=== PATIENT | female | born 1960 | race Caucasian/White ===

== ENCOUNTER 2019-05-20 09:53 | Emergency (ER) | payer BC ==
--- OUTSIDE RECORDS SUMMARY | 2019-05-20 11:30 | XMS REPORT | Continuity of Care Document ---
:1960 External Reference #:[id number] Author Name CLARISSA Wade Address [address] [place] [address] Care Team Providers Name Role Phone Florentin Lind MD - Emergency Medicine Care Team Information Bumper Straightener [facility] Care Team Information Bumper Straightener [phone] Problems Description No Active Problems Social History Type Date Description Comments Sex Unknown Tobacco Use Start: Unknown Patient has never smoked Allergies, Adverse Reactions, Alerts Active Allergies Reaction Severity Comments Date Midazolam Free Text 04/07/2018 Medications Active Medications SIG Qnty Indications Ordering Provider Date Amoxicillin/Clavulanat 1 by mouth 20tabs J01.90 Patrick 05/17/2019 e Potassium twice a day x MD Justice 875-125mg 10days Tablets History Medications No Active Medications Unknown 05/17/2019 - 05/17/2019 No Active Medications Unknown 12/25/2018 - 12/25/2018 Prednisone 2 tabs by 6tabs T63.461A Patrick 12/25/2018 - 10mg Tablets mouth every MD Justice 05/17/2019 day Immunizations CPT Code Status Date Vaccine Lot # [id number] Given 01/30/2015 Tdap - Tetanus/Diptheria/Acellular Pertussis [id number] Given 01/09/2014 Influenza Virus 3Yrs & Over [id number] Given 02/23/2008 Influenza Virus 3Yrs & Over Vital Signs Date Vital Result Comment 05/17/2019 2:51pm Heart Rate 81 /min BP Systolic Sitting 110 mmHg BP Diastolic Sitting 78 mmHg Respiratory Rate 16 /min Body Temperature 99.0 F O2 % BldC Oximetry 96 % room air 12/25/2018 2:53pm Heart Rate 68 /min BP Systolic Sitting 118 mmHg BP Diastolic Sitting 70 mmHg Body Temperature 98.9 F O2 % BldC Oximetry 95 % Results Description No Information Available Procedures Description No Information Available Medical Devices Description No Information Available Encounters Type Date Location Provider Dx Diagnosis Office Visit 12/25/2018 [facility] Nicolette T63.461A Toxic effect of 3:02p [place] of [place], Drugs accidental, init Assessments Date Code Description Provider 05/17/2019 J01.90 Acute sinusitis, unspecified CLARISSA Wade 12/25/2018 T63.461A Toxic effect of venom of wasps, accidental CLARISSA Johnson (unintentional), initial encounter Plan of Treatment 05/17/2019 - CLARISSA WadeJ01.90 Acute sinusitis, unspecifiedNew Medication: Amoxicillin/Clavulanate Potassium 875-125 mg - 1 by mouth twice a day x 10daysComments:FOLLOW UP WITH PRIMARY CARE IN 10 DAYS OR SOONER IF WORSE. Functional Status Description No Information Available Mental Status Description No Information Available Referrals Description No Information Available
[2019-05-20 11:40] VITALS: BP 127/64
--- NOTE | 2019-05-20 11:59 | UC ---
Respiratory Complaint HPI - HPI Summary HPI Summary: 59 yo with a several week hx of nasal congestion, sinus pressure and cough. She began a course of augmentin but developed a severe headache shortly after taking it and stopped use. She continues to feel unwell with prolonged bouts of coughing and fatigue. - History of Current Complaint Chief Complaint: UCGeneralIllness Stated Complaint: SINUS/CHEST CONGESTION Time Seen by Provider: 05/20/19 11:49 Hx Obtained From: Patient Hx Last Menstrual Period: D&C 4 years ago Onset/Duration: Gradual Onset, Lasting Weeks Severity Initially: Mild Severity Currently: Moderate Pain Intensity: 4 Character: Cough: Productive Aggravating Factors: Recumbent Position Alleviating Factors: OTC Meds - changed to long acting dextromethorphan yesterday for cough suppression. Associated Signs And Symptoms: Positive: Dyspnea, Nasal Congestion, Sinus Discomfort - Risk Factors Pulmonary Embolism Risk Factors: Negative Cardiac Risk Factors: Negative Pseudomonas Risk Factors: Negative Tuberculosis Risk Factors: Negative - Allergies/Home Medications Allergies/Adverse Reactions: Allergies Allergy/AdvReac Type Severity Reaction Status Date / Time No Known Allergies Allergy Verified 05/20/19 11:40 Home Medications: Home Medications Acetaminophen [Tylenol] 650 mg PO ONCE PRN 05/20/19 [History Confirmed 05/20/19] Phenylephrine/Dm/Acetaminop/GG [Severe Cold-Flu Caplet] 2 tab PO ONCE PRN [History Confirmed 05/20/19] PMH/Surg Hx/FS Hx/Imm Hx Previously Healthy: Yes - Surgical History Surgical History: Yes Surgery Procedure, Year, and Place: D&C. L knee - Family History Known Family History: Positive: Diabetes - mother - Social History Occupation: Employed Full-time Lives: With Family Alcohol Use: Rare Substance Use Type: None Smoking Status (MU): Never Smoked Tobacco Have You Smoked in the Last Year: No Review of Systems All Other Systems Reviewed And Are Negative: Yes Constitutional: Positive: Fatigue Skin: Positive: Negative Eyes: Positive: Negative ENT: Positive: Sore Throat, Ear Ache Respiratory: Positive: Cough Cardiovascular: Positive: Negative Gastrointestinal: Positive: Negative Genitourinary: Positive: Negative Motor: Positive: Negative Neurovascular: Positive: Negative Musculoskeletal: Positive: Negative Neurological/Mental Status: Positive: Negative Psychological: Positive: Negative Is Patient Immunocompromised?: No Physical Exam Triage Information Reviewed: Yes Appearance: Ill-Appearing - looks fatigued and mildly unwell Vital Signs: Initial Vital Signs Temp 98.6 F 05/20/19 11:34 Pulse 75 05/20/19 11:34 Resp 18 05/20/19 11:34 BP 127/64 05/20/19 11:34 Pulse Ox 98 05/20/19 11:34 Eyes: Positive: Conjunctiva Clear ENT: Positive: Pharyngeal erythema, Sinus tenderness Neck: Positive: Supple, Nontender, No Lymphadenopathy Respiratory: Positive: Lungs clear, Normal breath sounds Cardiovascular: Positive: RRR, No Murmur Musculoskeletal Exam: Normal Neurological Exam: Normal Psychological Exam: Normal Skin Exam: Normal Respiratory Course/Dx - Course Course Of Treatment: cephalexin for treatment of sinusitis - Differential Dx/Diagnosis Differential Diagnosis/HQI/PQRI: Bronchitis, Laryngitis, Sinusitis Provider Diagnosis: Sinusitis Discharge ED - Sign-Out/Discharge Documenting (check all that apply): Patient Departure All imaging exams completed and their final reports reviewed: No Studies - Discharge Plan Condition: Stable Disposition: HOME Prescriptions: cephALEXin [Keflex] 500 mg PO TID #30 capsule Patient Education Materials: Sinusitis (ED) Referrals: Yasemin Bass MD [Primary Care Provider] - Additional Instructions: Begin cephalexin for treatment of sinusitis. Continue use of cough suppressants, ensure rest and fluids. - Billing Disposition and Condition Condition: STABLE Disposition: Home
== END 2019-05-20 12:13 | disposition home or self-care (01) ==
LOC: UCCORT 09:53
DX: J32.9 Chronic sinusitis, unspecified (principal); R53.83 Other fatigue; H92.09 Otalgia, unspecified ear; J02.9 Acute pharyngitis, unspecified; R06.09 Other forms of dyspnea
CPT/HCPCS: 99212; G0463

== ENCOUNTER 2019-06-02 10:58 | Emergency (ER) | payer BC ==
--- OUTSIDE RECORDS SUMMARY | 2019-06-02 11:18 | XMS REPORT | Continuity of Care Document ---
:1960 External Reference #:[id number] Author Name CLARISSA Wade Address [address] [place] [address] Care Team Providers Name Role Phone Florentin Lind MD - Emergency Medicine Care Team Information Refrigeration Mechanic Helper [facility] Care Team Information Refrigeration Mechanic Helper [phone] Problems Description No Active Problems Social History Type Date Description Comments Sex Unknown Tobacco Use Start: Unknown Patient has never smoked Allergies, Adverse Reactions, Alerts Active Allergies Reaction Severity Comments Date Midazolam Free Text 04/07/2018 Medications Active Medications SIG Qnty Indications Ordering Provider Date Albuterol Sulfate HFA 2 puffs every 6 1units J20.9 [place] 05/30/2019 hours MD Justice 108(90Base) mcg/Act Aerosol Prednisone 40mg daily x 5 10tabs J20.9 Patrick 05/30/2019 20mg Tablets days MD Justice Keflex 3x's daily for Unknown 500mg Capsules 10 days History Medications No Active Unknown 05/30/2019 - Medications 05/30/2019 No Active Unknown 05/17/2019 - Medications 05/17/2019 Amoxicillin/Clavulan 1 by mouth 20tabs J01.90 Patrick 05/17/2019 - ate Potassium twice a day x MD Justice 05/30/2019 10days 875-125mg Tablets No Active Unknown 12/25/2018 - Medications 12/25/2018 Prednisone 2 tabs by 6tabs T63.461A Patrick 12/25/2018 - 10mg mouth every MD Justice 05/17/2019 Tablets day Immunizations CPT Code Status Date Vaccine Lot # [id number] Given 01/30/2015 Tdap - Tetanus/Diptheria/Acellular Pertussis 24774 Given 01/09/2014 Influenza Virus 3Yrs & Over [id number] Given 02/23/2008 Influenza Virus 3Yrs & Over Vital Signs Date Vital Result Comment 05/30/2019 10:58am Heart Rate 71 /min BP Systolic Sitting 114 mmHg BP Diastolic Sitting 82 mmHg Respiratory Rate 16 /min Body Temperature 99.2 F O2 % BldC Oximetry 96 % room air 05/17/2019 2:51pm Heart Rate 81 /min BP Systolic Sitting 110 mmHg BP Diastolic Sitting 78 mmHg Respiratory Rate 16 /min Body Temperature 99.0 F O2 % BldC Oximetry 96 % room air Results Description No Information Available Procedures Description No Information Available Medical Devices Description No Information Available Encounters Type Date Location Provider Dx Diagnosis Office Visit 12/25/2018 [facility] Nicolette T63.461A Toxic effect of 3:02p Walk-in at [facility] venom of wasps, Drugs accidental, init Assessments Date Code Description Provider 05/30/2019 J20.9 Acute bronchitis CLARISSA Wade 05/17/2019 J01.90 Acute sinusitis, unspecified CLARISSA Wade 12/25/2018 T63.461A Toxic effect of venom of wasps, accidental CLARISSA Johnson (unintentional), initial encounter Plan of Treatment 05/30/2019 - CLARISSA WadeJ20.9 Acute bronchitisNew Medication:Albuterol Sulfate HFA 108(90 Base) mcg/Act - 2 puffs every 6 hoursPrednisone 20 mg - 40mg daily x 5 daysComments:FOLLOW UP WITH YOUR DOCTOR IN 5-7 DAYS.GO TO THE ER FOR ANY WORSENING. COMPLETE THE ANTIBIOTIC. Functional Status Description No Information Available Mental Status Description No Information Available Referrals Description No Information Available
== END 2019-06-02 11:40 | disposition left against medical advice (07) ==
LOC: UCCORT 10:58
DX: Z53.21 Procedure and treatment not carried out due to patient leaving prior to being seen by health care provider (principal)